=== PATIENT | female | born 1970 | race African-American/Black ===

== ENCOUNTER → 2016-06-03 | Day surgery (SDC) | payer OTHER ==
--- NOTE | 2016-06-04 11:17 | PATH ---
Surgical Pathology Report Patient Name: SANG MCKEON [facility]. Rec. #: [id number] /Age/Gender: 1970 (Age: 45) / F Account: [id number] Location: [facility] Taken: 06/03/2016 Received: 06/03/2016 Reported: 06/04/2016 Physicians: Shiloh Tomlinson M.D. Specimen(s) Received BREAST CORE BIOPSY 7:00 RETRO Clinical History Suspicious Final Diagnosis RIGHT BREAST, 7:00 RETROAREOLAR, NEEDLE CORE BIOPSY: FIBROADENOMA (TUBULAR ADENOMA VARIANT). REMAINING BREAST TISSUE WITH FIBROCYSTIC CHANGES INCLUDING STROMAL FIBROSIS AND DUCTAL DILATATION. Electronically Signed Chris Reyes M.D. Gross Description Received in formalin labeled "right breast biopsy 7:00 retro," are six mello-yellow, cylindrical portions of fibroadipose tissue ranging from 0.4-1.8 cm. in length and averaging 0.2 cm. in diameter. The specimen is submitted in toto in one cassette. Time to formalin fixation: 2 minutes Total formalin fixation time: Approximately 7 hours [facility]/06/03/2016
== END | disposition home or self-care (01) ==
LOC: FRADUS-SUR 13:19
PROVIDERS: ATTEND Obstetrics & Gynecology
PROC: 0HBT3ZX Excision of Right Breast, Percutaneous Approach, Diagnostic (ICD-10-PCS; principal; 2016-06-03)
DX: N63 Unspecified lump in breast (principal); D24.1 Benign neoplasm of right breast; N60.31 Fibrosclerosis of right breast; N64.89 Other specified disorders of breast
CPT/HCPCS: 19083; 87899; 88305-TC; A4648; G0206-TC

== ENCOUNTER 2016-09-06 17:50 | Emergency (ER) | payer OTHER ==
[2016-09-06 17:54] VITALS: BP 142/90; PULSE 78; TEMP 98.3; BMI 27.4
[2016-09-06] MEDS ORDERED: diphenhydrAMINE HCL 25 MG CAPSULE (FP) PO ONE ×2 (19:12→19:16)
--- NOTE | 2016-09-06 19:17 | PDOC ---
History of Present Illness - General Chief Complaint: Allergic Reaction Stated Complaint: ALLERGIC REACTION Time Seen by Provider: 09/06/16 18:23 History Source: Patient - History of Present Illness Severity: mild Associated Symptoms: denies: shortness of breath Past History - Past Medical History Allergies/Adverse Reactions: Allergies Allergy/AdvReac Type Severity Reaction Status Date / Time guaifenesin [From Ravisin] Allergy Hives Verified 03/10/15 16:13 ketorolac Allergy Verified 09/06/16 17:54 Home Medications: Ambulatory Orders Amlodipine Besylate [Norvasc -] 5 mg PO DAILY 06/22/13 HTN: Yes - Psycho/Social/Smoking Cessation Hx Anxiety: No Suicidal Ideation: No Smoking Status: No Smoking History: Never smoked Number of Cigarettes Smoked Daily: 0 Information on smoking cessation initiated: No Hx Alcohol Use: No Drug/Substance Use Hx: No Substance Use Type: None Review of Systems - Review of Systems Integumentary: Yes: Pruritus, Rash *Physical Exam - Vital Signs Last Vital Signs Temp Pulse Resp BP Pulse Ox 98.3 F 78 18 142/90 97 09/06/16 17:52 09/06/16 17:52 09/06/16 17:52 09/06/16 17:52 09/06/16 17:52 - Physical Exam General Appearance: Yes: Appropriately Dressed. No: Apparent Distress HEENT: positive: Normal ENT Inspection, Normal Voice. negative: Scleral Icterus (R), Scleral Icterus (L) Neck: positive: Supple Respiratory/Chest: positive: Lungs Clear, Normal Breath Sounds. negative: Respiratory Distress, Stridor Cardiovascular: positive: Regular Rate, S1, S2 Integumentary: positive: Dry, Warm, Hives Neurologic: positive: Fully Oriented, Alert, Normal Mood/Affect Medical Decision Making - Medical Decision Making 09/06/16 19:15 46 yo F, h/o fibroids, back pain, no known drug/food allergies, here w/ generalized hives after taking toradol this am. No throat itching, voice changes, tongue swelling or shortness of breath. Patient reports that she has taken Toradol in the past but does not remember if she had a similar reaction. Patient has also taken Motrin in the past with no adverse reaction. Patient well-appearing and stable with hives to extremities and trunk. Rest of exam unremarkable. DC with Benadryl for itching as needed and w/ instructions to refrain from Toradol in the future 09/06/16 19:16 *DC/Admit/Observation/Transfer Diagnosis at time of Disposition: Hives - Discharge Dispostion Disposition: HOME Condition at time of disposition: Good - Patient Instructions Printed Discharge Instructions: DI for General Allergic Reactions, DI for Hives Additional Instructions: Refrain from taking toradol and motrin and use benadryl, claritin or zyrtec until itching resolves
== END 2016-09-06 19:19 | disposition home or self-care (01) ==
LOC: JERFT 17:50
DX: L50.9 Urticaria, unspecified (principal); I10 Essential (primary) hypertension; M54.9 Dorsalgia, unspecified
CPT/HCPCS: 99281-25

== ENCOUNTER 2017-03-19 11:35 | Day surgery (SDC) | payer OTHER ==
[2017-03-10 17:12] VITALS: BMI 27.6
[2017-03-19] MEDS ORDERED: PROPOFOL 20 ML ONE (11:46)
[2017-03-19 12:02] VITALS: TEMP 98
[2017-03-19 14:04] VITALS: PULSE 74
[2017-03-19 14:34] VITALS: BP 110/78
--- NOTE | 2017-03-24 13:17 | PATH ---
Surgical Pathology Report Patient Name: SANG MCKEON [facility]. Rec. #: [id number] /Age/Gender: 1970 (Age: 46) / F Account: [id number] Location: Taken: 03/19/2017 Received: 03/19/2017 Reported: 03/24/2017 Physicians: Magda Krueger M.D. Specimen(s) Received BX SIGMOID Clinical History Preoperative diagnosis: Constipation Postoperative diagnosis: Polyp Final Diagnosis SIGMOID, BIOPSY: HYPERPLASTIC POLYP. Electronically Signed Daja Mobley M.D. Gross Description Received in formalin, labeled "sigmoid" is a mello, irregular portion of soft tissue measuring 0.4 cm. in greatest dimension. The specimen is submitted in toto in one cassette. 03/20/2017 [facility]03/20/2017
== END 2017-03-19 14:37 | disposition home or self-care (01) ==
LOC: FASU-ENDO 11:35
PROVIDERS: ATTEND Internal Medicine Gastroenterology
PROC: 0DBN8ZX Excision of Sigmoid Colon, Via Natural or Artificial Opening Endoscopic, Diagnostic (ICD-10-PCS; principal; 2017-03-19 13:23)
DX: Z12.11 Encounter for screening for malignant neoplasm of colon (principal); D12.5 Benign neoplasm of sigmoid colon; K59.00 Constipation, unspecified; K64.1 Second degree hemorrhoids
CPT/HCPCS: 84703; 88305-TC

== ENCOUNTER 2018-10-14 08:22 | Emergency (ER) | payer OTHER ==
[2018-10-14 08:35] VITALS: TEMP 98.6; BMI 28.2
[2018-10-14] MEDS ORDERED: SODIUM CHLORIDE 1,000 ML IV SCH (09:00)
[2018-10-14 09:48] LABS: BASO % 0.3 % (0-2.0); EOS % 1.3 % (0-4.5); HEMATOCRIT 31.1 % (32.4-45.2); HEMOGLOBIN 10.2 GM/dL (10.7-15.3); LYMPH % 25.1 % (8-40); MCH 27.8 pg (25.7-33.7); MCHC 32.7 g/dl (32.0-36.0); MEAN CELL VOLUME 84.9 fl (80-96); MEAN PLT VOLUME 8.4 fl (7.5-11.1); NEUT % 64.3 % (42.8-82.8); PLATELET COUNT 269 K/MM3 (134-434); RBC 3.66 M/mm3 (3.60-5.2); RDW 16.5 % (11.6-15.6); WHITE BLOOD COUNT 6.4 K/mm3 (4.0-10.0)
[2018-10-14 09:54] LABS: ALBUMIN 3.5 g/dl (3.4-5.0); ALK PHOS 50 U/L (45-117); ANION GAP 5 MMOL/L (8-16); BILIRUBIN,TOTAL 0.4 mg/dL (0.2-1); BLOOD UREA NITROGEN 13.9 mg/dL (7-18); CALCIUM 9.1 mg/dL (8.5-10.1); CHLORIDE 105 mmol/L (98-107); CHOLESTEROL 208 mg/dL (50-200); CO2 29 mmol/L (21-32); CREATININE 0.8 mg/dL (0.55-1.3); GLUCOSE,RANDOM 91 mg/dL (74-106); HDL CHOLESTEROL 89 mg/dL (40-60); POTASSIUM 3.5 mmol/L (3.5-5.1); SGOT/AST 11 U/L (15-37); SGPT/ALT 16 U/L (13-61); SODIUM 139 mmol/L (136-145); TRIGLYCERIDES 75 mg/dL (0-150)
[2018-10-14 09:57] LABS: INR 0.97 (0.83-1.09); PROTHROMBIN TIME (PATIENT) 11.5 SEC (9.7-13.0)
[2018-10-14 11:29] VITALS: BP 140/71; PULSE 60
[2018-10-14 11:30] LABS: EPI CELLS 14.9 /HPF (0-5/HPF); HYALINE CASTS 4 /lpf (0-8); PH,URINE 6.5 (5.0-8.0); URINE APPEARANCE CLOUDY; URINE BACTERIA 1228.5 /hpf (NEGATIVE); URINE BILIRUBIN NEGATIVE (NEGATIVE); URINE COLOR YELLOW; URINE GLUCOSE (UA) NEGATIVE (NEGATIVE); URINE KETONE NEGATIVE (NEGATIVE); URINE LEUK ESTERASE 1+ (NEGATIVE); URINE NITRITE NEGATIVE (NEGATIVE); URINE PROTEIN NEGATIVE (NEGATIVE); URINE RBC 2 /hpf (0-4); URINE UROBILINOGEN 0.2 mg/dL (0.2-1.0); URINE WBC 23 /hpf (0-5)
--- NOTE | 2018-10-14 11:36 | PDOC ---
Documentation entered by Stefany Rees SCRIBE, acting as scribe for Rudolph Ansari MD. Rudolph Ansari MD: This documentation has been prepared by the Cabrera herrera Sammi, SCRIBE, under my direction and personally reviewed by me in its entirety. I confirm that the documentation accurately reflects all work, treatment, procedures, and medical decision making performed by me. History of Present Illness - General Chief Complaint: CVA/TIA Stated Complaint: RT NUMBNESS Time Seen by Provider: 10/14/18 08:39 - History of Present Illness Initial Comments: 10/14/18 08:59 The patient is a 48 year old female, with a significant PMH of HTN, who presents to the ED for evaluation of 1-2 weeks of constant right facial and right index finger paresthesia. Denies change in vision, speech, or strength. Denies head trauma. Of note, the patient is on oral and topical prednisone for dermis planus. Denies any other associated factors. PCP: Golden Hansen Past History - Past Medical History Allergies/Adverse Reactions: Allergies Allergy/AdvReac Type Severity Reaction Status Date / Time ketorolac Allergy Severe Hives Verified 10/14/18 11:42 guaifenesin [From Robitussin] Allergy Hives Verified 10/14/18 11:42 Home Medications: Ambulatory Orders Amlodipine Besylate [Norvasc -] 10 mg PO DAILY 06/22/13 Sennosides/Docusate Sodium [Stimulant Laxative Plus Tablet] 1 each PO PRN PRN Prednisone 5 mg PO DAILY 10/14/18 Anemia: No Asthma: No Cancer: No Cardiac Disorders: No CVA: No COPD: No CHF: No Dementia: No Diabetes: No GI Disorders: No Disorders: No HTN: Yes Hypercholesterolemia: No Liver Disease: No Seizures: No Thyroid Disease: No - Surgical History Abdominal Surgery: No Appendectomy: No Cardiac Surgery: No Cholecystectomy: No Lung Surgery: No Neurologic Surgery: No Orthopedic Surgery: No - Suicide/Smoking/Psychosocial Hx Smoking Status: No Smoking History: Never smoked Number of Cigarettes Smoked Daily: 0 Hx Alcohol Use: Yes (ocassionally) Drug/Substance Use Hx: No Substance Use Type: None Review of Systems - Review of Systems Comments:: 10/14/18 09:01 CONSTITUTIONAL: No fever, no chills, no fatigue EYES: No visual changes ENT: No ear pain, no sore throat CARDIOVASCULAR: No chest pain, no palpitations RESPIRATORY: No cough, no SOB GI: No abdominal pain, no nausea, no vomiting, no constipation, no diarrhea GENITOURINARY: No dysuria, no frequency, no hematuria MUSKULOSKELETAL: No backpain, no joint pain, no myalgias SKIN: No rash NEURO: (+)right facial and right index finger paresthesia. No headache *Physical Exam - Vital Signs Last Vital Signs Temp Pulse Resp BP Pulse Ox 98.6 F 74 16 114/88 97 10/14/18 08:30 10/14/18 08:30 10/14/18 08:30 10/14/18 08:30 10/14/18 08:30 - Physical Exam Comments: 10/14/18 10:06 CONSTITUTIONAL: Well-appearing; well-nourished; in no apparent distress HEAD: Normocephalic; atraumatic EYES: PERRL; EOM intact ENMT: External appears normal; normal oropharynx NECK: Supple; non-tender; no cervical lymphadenopathy CARD: Normal S1, S2; no murmurs, rubs, or gallops RESP: Normal chest excursion with respiration; breath sounds clear and equal bilaterally; no wheezes, rhonchi, or rales ABD: Soft, non-distended; non-tender; no palpable organomegaly, no palpable hernias EXT: Normal ROM in all four extremities; non-tender to palpation; distal pulses intact SKIN: Warm, dry, no rash NEURO: (+)decreased sensation to right upper and lower lip. Cranial nerves II through XII grossly intact. Motor strength 5/5. No pronator drift. Stable gait. NIH Stroke Scale - Last Known Well Date/Time & Onset Date Last Known Well: 10/01/17 Time Last Known Well: 09:00 - Initial Evaluation Level of consciousness: Alert Ask patient the month and their age: Answers both correctly Ask patient to open & close eyes; make fist and let go: Obeys both correctly Best gaze (horizontal eye movement): Normal Visual field testing: No visual field loss Facial paresis (Show teeth/raise eyebrows/close eyes tight): Normal symmetrical movement Motor Function: Left Arm: Normal Motor Function: Right Arm: Normal (extends arm 90 (or 45) degrees for 10 seconds without drift Motor Function: Left Leg: Normal (extends leg 30 degrees for 5 seconds without drift) Motor Function: Right Leg: Normal (extends leg 30 degrees for 5 seconds without drift) Limb Ataxia: No ataxia Sensory(Use pinprick test arms,legs,trunk,face/side to side): Mild to moderate decrease in sensation Best language (Describe picture, name items, read sentences): No Aphasia Dysarthria (read several words): Normal articulation Extinction and Inattention: No abnormality - Total Score NIH Stroke Scale Score: 1 Heart Score/ECG Review - ECG Impressions Comment:: 10/14/18 09:59 Normal sinus rhythm possible left atrial enlargement borderline ECG Critical Care Time/MDM Note - Medical Decision Making Note: 10/14/18 11:33 Patient is a 48-year-old female with history of hypertension who presents with right-sided facial paresthesias for a period of up to 2 weeks prior to arrival. In the ER, patient shows decreased sensation to right upper and right lower lips in the V1/V2 distributions on the right. No other focal neurological deficits are appreciated. CT of head shows no evidence of acute intracranial pathology. Patient is not a TPA candidate given the low NIH stroke scale and the onset of symptoms more than 7 days previously. Will discuss with neurology. Will reassess. 10/14/18 12:16 Case discussed with of neurology. He agrees with plan of administration of aspirin and outpatient follow-up in 24 hours. I discussed the plan with the patient. She advised me that she had aspirin in the past without ill effects despite being ALLERGIC to Toradol. We'll administer aspirin. We'll observe. Will discharge with neurology follow-up. 10/14/18 13:45 pt aamir aspirin without ill effects. will d/c with neurology f/u. *DC/Admit/Observation/Transfer Diagnosis at time of Disposition: Right facial numbness - Discharge Dispostion Disposition: HOME Condition at time of disposition: Stable - Referrals Referrals: Miguel Hansen MD [Primary Care Provider] - Saqib Lugo MD [Staff Physician] - - Patient Instructions Printed Discharge Instructions: DI for Numbness/tingling Additional Instructions: Please follow up with neurology in 24 hours. Return immediately for visual changes, arm weakness, difficulty speaking. - Post Discharge Activity Forms/Work/School Notes: Back to Work - Attestations Physician Attestion: 10/14/18 11:33 The documentation was prepared by the scribe under my direct supervision. I have reviewed the documentation which correctly represents the findings, medical decision-making and critical action taken by me.
[2018-10-14] MEDS ORDERED: ASPIRIN 325 MG ENTERIC COATED TABLET (FP) PO ONE (12:17)
[2018-10-14] MEDS ORDERED: ASPIRIN 325 MG TABLET ONE (12:51)
--- NOTE | 2018-10-15 11:13 | EKG ---
Test Reason : Blood Pressure : / mmHG Vent. Rate : 064 BPM Atrial Rate : 064 BPM P-R Int : 188 ms QRS Dur : 072 ms QT Int : 416 ms P-R-T Axes : 037 -03 015 degrees QTc Int : 429 ms NORMAL SINUS RHYTHM POSSIBLE LEFT ATRIAL ENLARGEMENT WHEN COMPARED WITH ECG OF 21-JAN-2008 09:33, NO SIGNIFICANT CHANGE WAS FOUND Confirmed by AGUEDA LEYVA MD ([id number]) on 10/15/2018 11:12:53 AM Referred By: Confirmed By:AGUEDA LEYVA MD
== END 2018-10-14 14:22 | disposition home or self-care (01) ==
LOC: JER 08:22
DX: R20.0 Anesthesia of skin (principal); I10 Essential (primary) hypertension
CPT/HCPCS: 36415; 70450-TC; 80053; 80061; 81003; 82550; 83721; 84484; 84703; 85025; 85610; 86850; 86900; 86901; 93005; 93010; 99285-25; J7030

== ENCOUNTER 2019-11-02 04:27 | Day surgery (SDC) | payer OTHER ==
[2019-09-13 14:29] VITALS: BMI 28.2
--- NOTE | 2019-11-02 06:48 | HP ---
History & Physical Update - History History: No Change - Physical Physical: No Change - Assessment Assessment: No Change - Plan Plan: No Change (Consent signed and witnessed, all questions answered)
[2019-11-02] MEDS ORDERED: DEXAMETHASONE SOD PHOSPHATE 4 MG/1 ML VIAL ONE (07:30)
[2019-11-02] MEDS ORDERED: MIDAZOLAM HCL 2 MG/2 ML SINGLE DOSE VIAL ONE (07:31)
[2019-11-02] MEDS ORDERED: PROPOFOL 20 ML ONE ×3 (07:33)
--- NOTE | 2019-11-02 09:24 | OP ---
Operative Note - Note: Operative Date: 11/02/19 Pre-Operative Diagnosis: 49yo with Abnormal bleeding, submucosal fibroid Operation: Hysteroscopy, myomectomy, D&C Findings: Anterior wall 2 fibroids lower uterine segment polyp Post-Operative Diagnosis: Same as Pre-op Surgeon: Gudelia Ponce Anesthesiologist/HEAVY EQUIPMENT OPERATOR APPRENTICE: Curry Ferrell Anesthesia: MAC Estimated Blood Loss (mls): 10 Instrument used (Debridements only): Symphion Drains & Tubes with Location: Fluid deficit 800cc Drains, Volume Out (mls): 250 Fluid Volume Replaced (mls): 900 Operative Report Dictated: Yes
[2019-11-02] MEDS ORDERED: oxyCODONE HCL 5 MG TABLET PO PRN (09:25)
[2019-11-02] MEDS ORDERED: ONDANSETRON 4 MG/2 ML VIAL IVPUSH PRN (09:25)
[2019-11-02] MEDS ORDERED: IBUPROFEN 800 MG/8 ML IJ IVPB PRN (09:25)
[2019-11-02] MEDS ORDERED: IBUPROFEN 600 MG TABLET (FP) PO PRN (09:25)
[2019-11-02] MEDS ORDERED: ELECTROLYTE-148 SOLN 1,000 ML IV SCH (09:30)
[2019-11-02 11:42] VITALS: TEMP 97.8
[2019-11-02 13:23] VITALS: BP 135/86; PULSE 78
--- NOTE | 2019-11-02 15:30 | OP ---
DATE OF OPERATION: 11/02/2019 PREOPERATIVE DIAGNOSIS: A 49-year-old with abnormal bleeding and submucosal fibroid. OPERATION: Hysteroscopy, myomectomy, dilation and curettage. FINDINGS: Anterior wall 2 fibroids and lower uterine segment polyp. POSTOPERATIVE DIAGNOSIS: A 49-year-old with abnormal bleeding and submucosal fibroid. SURGEON: Gudelia Ponce MD ANESTHESIOLOGIST: Curry Ferrell MD ANESTHESIA: MAC. DESCRIPTION OF OPERATIVE PROCEDURE: After assuring informed consent, patient was brought to the operating room where she was placed in dorsal lithotomy position. Vagina and perineum were prepped and draped in sterile fashion. Paiz retractors were placed into the vagina. Cervix was visualized and the anterior cervical lip was articulated with single-tooth tenaculum. Cervix was gradually dilated to accommodate 6.3-mm hysteroscope which was introduced into the uterine cavity without any difficulty. Hysteroscope was prior to introduction primed and white balanced. The above findings were noted in the uterus. Resectoscope was introduced through the operative port of the hysteroscope and fibroids were resected optimally as well as the polyp. Endometrial curettings were produced as well. Excellent hemostasis was noted throughout the procedure. All instruments and sponges were removed from uterus, cervix and vagina. Estimated blood loss 10 mL. Patient received 900 mL of IV fluids, drained 250 mL of urine at the beginning of the procedure. Fluid deficit was found to be 800 mL. Patient tolerated the procedure well and was brought to the recovery room in stable condition. Shiloh RAJPUT/[id number]
--- NOTE | 2019-11-03 14:52 | PATH ---
Surgical Pathology Report Patient Name: SANG MCKEON [facility]. Rec. #: [id number] /Age/Gender: 1970 (Age: 49) / F Account: [id number] Location: [facility] SUR[facility] Taken: 11/02/2019 Received: 11/02/2019 Reported: 11/03/2019 Physicians: Gudelia Ponce M.D. Specimen(s) Received ENDOMETRIAL CURETTINGS AND FIBROID Clinical History Fibroid uterus Final Diagnosis FIBROID AND ENDOMETRIAL CURETTING: ENDOMETRIAL POLYP. SEPARATE FRAGMENTS OF PROLIFERATIVE ENDOMETRIUM. FRAGMENTS OF SMOOTH MUSCLE BUNDLES, CONSISTENT WITH SUBMUCOSAL LEIOMYOMA. Electronically Signed Kristopher Astudillo M.D. Gross Description Received in formalin labeled "fibroid and endometrial curetting," is a 4.0 x 3.0 x 0.4 cm aggregate of mello soft tissue fragments. The specimen is entirely submitted in 3 cassettes. /11/02/2019 [place]/11/02/2019
== END 2019-11-02 13:37 | disposition home or self-care (01) ==
LOC: JASU-SURG 04:27
PROVIDERS: ATTEND Obstetrics & Gynecology
PROC: 0UB98ZZ Excision of Uterus, Via Natural or Artificial Opening Endoscopic (ICD-10-PCS; principal; 2019-11-02 07:30)
PROC: 0UDB8ZX Extraction of Endometrium, Via Natural or Artificial Opening Endoscopic, Diagnostic (ICD-10-PCS; 2019-11-02 07:30)
DX: D25.0 Submucous leiomyoma of uterus (principal); N84.0 Polyp of corpus uteri
CPT/HCPCS: 81025; 88305-TC; 94760

== ENCOUNTER 2021-12-28 04:35 | Day surgery (SDC) | payer OTHER ==
[2021-12-27 09:39] VITALS: BMI 29.0
[2021-12-28] MEDS ORDERED: LIDOCAINE HCL 1% EPINEPHRINE 1:200,000 30 ML VIAL (PF) ONE ×2 (10:18→10:21)
[2021-12-28] MEDS ORDERED: SUCCINYLCHOLINE CHLORIDE 200 MG/10 ML SYRINGE ONE (10:24)
[2021-12-28] MEDS ORDERED: MIDAZOLAM HCL 2 MG/2 ML SINGLE DOSE VIAL ONE (10:24)
[2021-12-28] MEDS ORDERED: PROPOFOL 40 ML ONE (10:24)
[2021-12-28] MEDS ORDERED: ROCURONIUM BROMIDE 50 MG/5 ML SYRINGE ONE (10:48)
[2021-12-28] MEDS ORDERED: BUPIVACAINE HCL/PF 0.25% (2.5MG/ML) 10 ML VIAL ONE (11:01)
[2021-12-28] MEDS ORDERED: BACITRACIN 15 GM TUBE TOPICAL OINTMENT TP ONE (11:53)
[2021-12-28] MEDS ORDERED: GLYCOPYRROLATE 0.2 MG/1 ML VIAL ONE ×3 (11:57→11:58)
[2021-12-28] MEDS ORDERED: NEOSTIGMINE METHYLSULFATE 0.5 MG/ML - 10 ML MDV ONE (11:57)
[2021-12-28] MEDS ORDERED: oxyCODONE HCL 5 MG TABLET PO PRN (13:22)
[2021-12-28] MEDS ORDERED: ONDANSETRON 4 MG/2 ML VIAL IVPUSH PRN (13:22)
[2021-12-28] MEDS ORDERED: LACTATED RINGERS SOLUTION 1,000 ML IV SCH (13:30)
[2021-12-28 14:25] VITALS: RESP 18
[2021-12-28 16:09] VITALS: BP 127/73; PULSE 85; TEMP 97.5
== END 2021-12-28 16:09 | disposition home or self-care (01) ==
LOC: JASU-SURG 04:35
PROVIDERS: ATTEND Plastic Surgery
PROC: 0JB10ZZ Excision of Face Subcutaneous Tissue and Fascia, Open Approach (ICD-10-PCS; principal; 2021-12-28 10:00)
DX: D17.9 Benign lipomatous neoplasm, unspecified (principal)
CPT/HCPCS: 81025; 88304-TC; 94760

== ENCOUNTER 2023-03-22 04:10 | Emergency (ER) | payer OTHER ==
[2023-03-22 04:26] VITALS: BP 100/81; PULSE 83; RESP 18; TEMP 98; BMI 30.9
== END 2023-03-22 05:17 | disposition home or self-care (01) ==
LOC: JER 04:10
DX: H57.89 Other specified disorders of eye and adnexa (principal); H11.31 Conjunctival hemorrhage, right eye; R51.9 Headache, unspecified
CPT/HCPCS: 99282-25

== ENCOUNTER 2023-11-12 03:51 | Emergency (ER) | payer OTHER ==
[2023-11-12 03:59] VITALS: BP 149/95; PULSE 67; RESP 18; TEMP 97.7; BMI 28.1
== END 2023-11-12 04:39 | disposition home or self-care (01) ==
LOC: JER 03:51
DX: S60.812A Abrasion of left wrist, initial encounter (principal); W45.0XXA Nail entering through skin, initial encounter
CPT/HCPCS: 99282-25